=== PATIENT | male | born 1930 | race Caucasian/White ===

== ENCOUNTER 2016-05-23 19:17 | Emergency (ER) | payer OTHER ==
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
--- NOTE | 2016-05-23 22:53 | ED ORDER SUMMARY ---
..... Patient: OC SCHRADER OrderSheet [facility] VisitID: [id number] [place] [address] 85y, M Registration Date/Time: 05/23/2016 ORDER SHEET Weight: 68.9 kg (stated) Allergies: NKDA GENERAL ORDERS: Elbow 3 or 4V Right Urgent (19:56 05/23/2016 HBivens A.R.N.P.) (Ack 20:08 JQuivey R.N.) (20:15 TSalvadelena) Splint (UE) (Right) (posterior) (22:17 05/23/2016 HBivens A.R.N.P.) (Ack 22:37 JQuivey R.N.) (22:54 [employer] ER Cook Short Order) Sling - arm (22:17 05/23/2016 HBivens A.R.N.P.) (Ack 22:37 JQuivey R.N.) (22:54 [employer] ER Cook Short Order) MEDICATION ORDERS: Tdap IM 0.5 mL (per protocol) (19:59 05/23/2016 JQuivey R.N. per protocol) (20:06 JQuivey R.N.) Hydrocodone-APAP PO 5/325 mg (NOW, HIGH ALERT MEDICATION) (22:17 05/23/2016 HBivens A.R.N.P.) (Ack 22:30 JQuivey R.N.) (22:36 JQuivey R.N.) IV FLUIDS: ORDER SHEET NOTES: [Electronically signed by Jeffrey Rodriguez R.N. (23:05/23/2016)] [Electronically signed by Anila Palacios A.R.N.P. (23:13 05/23/2016)] [Electronically locked/signed by Jeffrey Rodriguez R.N. (23:05/23/2016)]
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
--- NOTE | 2016-05-23 22:53 | ED ORDER SUMMARY ---
..... Patient: OC SCHRADER OrderSheet [facility] VisitID: [id number] [place] [address] 85y, M Registration Date/Time: 05/23/2016 ORDER SHEET Weight: 68.9 kg (stated) Allergies: NKDA GENERAL ORDERS: Elbow 3 or 4V Right Urgent (19:56 05/23/2016 HBivens A.R.N.P.) (Ack 20:08 JQuivey R.N.) (20:15 TSalvadelena) Splint (UE) (Right) (posterior) (22:17 05/23/2016 HBivens A.R.N.P.) (Ack 22:37 JQuivey R.N.) (22:54 [employer] ER Robotics Specialist) Sling - arm (22:17 05/23/2016 HBivens A.R.N.P.) (Ack 22:37 JQuivey R.N.) (22:54 [employer] ER Robotics Specialist) MEDICATION ORDERS: Tdap IM 0.5 mL (per protocol) (19:59 05/23/2016 JQuivey R.N. per protocol) (20:06 JQuivey R.N.) Hydrocodone-APAP PO 5/325 mg (NOW, HIGH ALERT MEDICATION) (22:17 05/23/2016 HBivens A.R.N.P.) (Ack 22:30 JQuivey R.N.) (22:36 JQuivey R.N.) IV FLUIDS: ORDER SHEET NOTES: [Electronically signed by Jeffrey Rodriguez R.N. (23:05/23/2016)] [Electronically signed by Anila Palacios A.R.N.P. (23:13 05/23/2016)] [Electronically locked/signed by Jeffrey Rodriguez R.N. (23:05/23/2016)]
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
--- NOTE | 2016-05-23 23:14 | ED MED RECONCILIATION SUMMARY ---
Patient: OC SCHRADER Medication Reconciliation Report [facility] VisitID: [id number] [place] [address] 85y, M Registration Date/Time: 05/23/2016 Weight: 68.9 kg Height/Length: (not available) BMI: 24.2 ALLERGIES: NKDA The patient's Home Medications are listed below: THE FOLLOWING MEDICATIONS NEED TO BE RECONCILED: Asa 81mg daily Diltiazem HCl Oral 300 mg, daily Fluticasone Propionate (Inhal) Inhalation Loratadine Oral 10 mg, daily Niacin 1 tab daily Pravastatin Sodium Oral 80mg, at bedtime Tamsulosin HCl Oral 0.4 mg, daily The source(s) of the original Home Medication information: Not obtained. The following Medications were given to the patient in the Emergency Department: TDAP [IM] IM 0.5 mL, administered: 05/23/2016 8:04:00 PM Hydrocodone-APAP [PO] PO 1 tab, administered: 05/23/2016 10:33:00 PM The following Medications were prescribed to the patient: Zofran 4 mg: Take 1 orally every six hours as needed for nausea/vomiting. Dispense ten (10). No refills. Substitution is permissible. -- Anila Palacios, A.R.N.P. [place] 5 mg / 325 mg tablets: take 1 orally every 6 hours as needed for pain. Dispense thirty (30). No refill. -- Anila Palacios, A.R.N.P. Motrin 800 mg tablets: take 1 tablet orally every 8 hours as needed for pain. Dispense thirty (30). No refills. Substitution is permissible. -- Anila Palacios, A.R.N.P.
--- NOTE | 2016-05-23 23:14 | ED MAR SUMMARY ---
..... Medication Administration Record [facility] [address] [place] [address] Patient: OC SCHRADER Visit ID: [id number] 85y, M Weight: 68.9 kg Height/Length: 66.5 in BMI: 24.2 ALLERGIES: NKDA Given 20:04 05/23/2016 Jeffrey Rodriguez, R.N. Medication Administered: TDAP [IM], Dose: 0.5 mL IM. Medication Ordered: Tdap IM 0.5 mL (per protocol). Given 22:33 05/23/2016 Jeffrey Rodriguez, R.N. Medication Administered: HYDROCODONE-APAP [PO] (HYDROCODONE-ACETAMINOPHEN), Dose: 1 tab 5/325 mg Tablets PO. Medication Ordered: Hydrocodone-APAP PO 5/325 mg (NOW, HIGH ALERT MEDICATION).
--- NOTE | 2016-05-23 23:14 | ED MED RECONCILIATION SUMMARY ---
Patient: OC SCHRADER Medication Reconciliation Report [facility] VisitID: [id number] [place] [address] 85y, M Registration Date/Time: 05/23/2016 Weight: 68.9 kg Height/Length: (not available) BMI: 24.2 ALLERGIES: NKDA The patient's Home Medications are listed below: THE FOLLOWING MEDICATIONS NEED TO BE RECONCILED: Asa 81mg daily Diltiazem HCl Oral 300 mg, daily Fluticasone Propionate (Inhal) Inhalation Loratadine Oral 10 mg, daily Niacin 1 tab daily Pravastatin Sodium Oral 80mg, at bedtime Tamsulosin HCl Oral 0.4 mg, daily The source(s) of the original Home Medication information: Not obtained. The following Medications were given to the patient in the Emergency Department: TDAP [IM] IM 0.5 mL, administered: 05/23/2016 8:04:00 PM Hydrocodone-APAP [PO] PO 1 tab, administered: 05/23/2016 10:33:00 PM The following Medications were prescribed to the patient: Zofran 4 mg: Take 1 orally every six hours as needed for nausea/vomiting. Dispense ten (10). No refills. Substitution is permissible. -- Anila Palacios, A.R.N.P. [place] 5 mg / 325 mg tablets: take 1 orally every 6 hours as needed for pain. Dispense thirty (30). No refill. -- Anila Palacios, A.R.N.P. Motrin 800 mg tablets: take 1 tablet orally every 8 hours as needed for pain. Dispense thirty (30). No refills. Substitution is permissible. -- Anila Palacios, A.R.N.P.
--- NOTE | 2016-05-23 23:14 | ED MAR SUMMARY ---
..... Medication Administration Record [facility] [address] [place] [address] Patient: OC SCHRADER Visit ID: [id number] 85y, M Weight: 68.9 kg Height/Length: 66.5 in BMI: 24.2 ALLERGIES: NKDA Given 20:04 05/23/2016 Jeffrey Rodriguez, R.N. Medication Administered: TDAP [IM], Dose: 0.5 mL IM. Medication Ordered: Tdap IM 0.5 mL (per protocol). Given 22:33 05/23/2016 Jeffrey Rodriguez, R.N. Medication Administered: HYDROCODONE-APAP [PO] (HYDROCODONE-ACETAMINOPHEN), Dose: 1 tab 5/325 mg Tablets PO. Medication Ordered: Hydrocodone-APAP PO 5/325 mg (NOW, HIGH ALERT MEDICATION).
--- NOTE | 2016-05-23 23:14 | ED DISCHARGE INSTRUCTIONS ---
Patient: OC SCHRADER General Instructions [facility] VisitID: [id number] [place] [address] 85y, M Registration Date/Time: 05/23/2016 Fall on same level by tripping. Closed nondisplaced fracture of the proximal right radius (Elbow). No angulated fracture of the radius. INSTRUCTIONS Apply ice for 20 minutes four times a day for two days. Wear simple sling. Elevate affected areas above chest level for two days until better. Wear fiberglass splint until released. Warnings: GENERAL WARNINGS: Return or contact your physician immediately if your condition worsens or changes unexpectedly, if not improving as expected, or if other problems arise. worsens. Prescription Medications: Zofran 4 mg: Take 1 orally every six hours as needed for nausea/vomiting. Dispense ten (10). No refills. Substitution is permissible. Milbridge 5 mg / 325 mg tablets: take 1 orally every 6 hours as needed for pain. Dispense thirty (30). No refill. Motrin 800 mg tablets: take 1 tablet orally every 8 hours as needed for pain. Dispense thirty (30). No refills. Substitution is permissible. Follow-up: Follow up with an orthopedic surgeon as scheduled even if well. Summary of care provided to patient and family. Understanding of the discharge instructions verbalized by patient and family. ADDITIONAL INFORMATION Mechanical Fall You have had a fall today. It appears that the cause is mechanical. That means that you slipped, tripped or lost your balance. If your fall had been due to fainting or a seizure, further tests would be required. Home Care: Rest today and resume your normal activities when you are feeling back to normal. If you were injured during the fall, follow the advice from your doctor regarding care of your injury. You may use acetaminophen (Tylenol) or ibuprofen (Motrin, Advil) to control pain, unless another pain medicine was prescribed. [NOTE: If you have chronic liver or kidney disease or ever had a stomach ulcer or GI bleeding, talk with your doctor before using these medicines.] Fall Prevention: Was there anything that caused your fall that can be fixed, removed, or replaced? Make your home safe by keeping walkways clear of objects you may trip over. Use non-slip pads under rugs. Do not walk in poorly lit areas. Do not stand on chairs or wobbly ladders. Use caution when reaching overhead or looking upward. This position can cause a loss of balance. Be sure your shoes fit properly, have non-slip bottoms and are in good condition. Be cautious when going up and down curbs, and walking on uneven sidewalks. If your balance is poor, consider using a cane or walker. Stay as active as you can. Balance, flexibility, strength, and endurance all come from exercise. They all play a role in preventing falls. Follow Up with your doctor or as advised by our staff. Get Prompt Medical Attention if any of the following occur: Repeated mechanical falls, or unexplained falls Dizziness, fainting or seizure Severe headache Chest pain or shortness of breath Palpitations (very rapid or very slow or irregular heartbeat) Blood in vomit, stools (black or red color) Weakness of an arm or leg or one side of the face Difficulty with speech or vision Sling A sling is designed to support your arm in a position of rest. It is used for injuries of the hand, forearm, upper arm, and shoulder. A shoulder that is immobilized too long can become stiff and lose range of motion. Follow up with your doctor as advised and do not use the sling longer than directed. Home Use: Leave the sling in place as long as directed by your doctor. Unless told otherwise, you may remove it when bathing, dressing, and when you go to sleep. The sling is adjustable. If it becomes loose, adjust it so that your forearm is horizontal (level with the ground). Your hand should be level with the elbow. Splint Care, Fiberglass The following will help you care for your splint: It will take up totwo hours for your fiber glass splint to fully harden; therefore, do notapply any pressure on it during that time or else it may break. To prevent swelling under the splint, for thefirst 48 hours: If the splint is on yourarm, keep it in a sling or raised to shoulder level when sitting or standing; rest it on your chest or on a pillow at your side when lying down. If the splint is on yourfoot, keep it propped up above the level of your waist when sitting or lying. Avoid crutch walking as much as possible during this time. Keep the splint/cast dry at all times. Bathe with your splint/cast well out of the water, protected with a large plastic bag, rubber-banded at the top end. If a fiberglass cast or splint gets wet, you can dry it with a hair-dryer. Follow-up care Follow up with your doctor or this facility as advised. When to seek medical care Get prompt medical attention if any of the following occur: Bad odor from the splint or wound-fluid stains the splint The splint cracks or remains wet over 24 hours Increasing tightness or pressure under the splint Fingers or toes become swollen, cold, blue, numb or tingly Increased pain under the splint Ondansetron Oral disintegrating tablet What is this medicine? ONDANSETRON (on MARTINEZ se willy) is used to treat nausea and vomiting caused by chemotherapy. It is also used to prevent or treat nausea and vomiting after surgery. How should I use this medicine? These tablets are made to dissolve in the mouth. Do not try to push the tablet through the foil backing. With dry hands, peel away the foil backing and gently remove the tablet. Place the tablet in the mouth and allow it to dissolve, then swallow. While you may take these tablets with water, it is not necessary to do so. Talk to your grievance manager regarding the use of this medicine in children. Special care may be needed. What side effects may I notice from receiving this medicine? Side effects that you should report to your doctor or health wild animal caretaker as soon as possible: allergic reactions like skin rash, itching or hives, swelling of the face, lips, or tongue breathing problems dizziness fast or irregular heartbeat feeling faint or lightheaded, falls fever and chills swelling of the hands and feet tightness in the chest Side effects that usually do not require medical attention (report to your doctor or health wild animal caretaker if they continue or are bothersome): constipation or diarrhea headache What may interact with this medicine? Do not take this medicine with any of the following medications: -apomorphine -cisapride -dofetilide -dronedarone -pimozide -thioridazine -ziprasidone This medicine may also interact with the following medications: -carbamazepine -phenytoin -rifampicin -tramadol -other medicines that prolong the QT interval (cause an abnormal heart rhythm) What if I miss a dose? If you miss a dose, take it as soon as you can. If it is almost time for your next dose, take only that dose. Do not take double or extra doses. Where should I keep my medicine? Keep out of the reach of children. Store between 2 and 30 degrees C (36 and 86 degrees F). Throw away any unused medicine after the expiration date. What should I tell my health care provider before I take this medicine? They need to know if you have any of these conditions: heart disease history of irregular heartbeat liver disease low levels of magnesium or potassium in the blood an unusual or allergic reaction to ondansetron, granisetron, other medicines, foods, dyes, or preservatives or trying to get breast-feeding What should I watch for while using this medicine? Check with your doctor or health wild animal caretaker as soon as you can if you have any sign of an allergic reaction. Hydrocodone Bitartrate, Acetaminophen Oral tablet What is this medicine? ACETAMINOPHEN; HYDROCODONE (a set a GELA mauricio fen; miriam droe KOE done) is a pain reliever. It is used to treat mild to moderate pain. How should I use this medicine? Take this medicine by mouth. Swallow it with a full glass of water. Follow the directions on the prescription label. If the medicine upsets your stomach, take the medicine with food or milk. Do not take more than you are told to take. Talk to your grievance manager regarding the use of this medicine in children. This medicine is not approved for use in children. What side effects may I notice from receiving this medicine? Side effects that you should report to your doctor or health wild animal caretaker as soon as possible: allergic reactions like skin rash, itching or hives, swelling of the face, lips, or tongue breathing problems confusion feeling faint or lightheaded, falls stomach pain yellowing of the eyes or skin Side effects that usually do not require medical attention (report to your doctor or health wild animal caretaker if they continue or are bothersome): nausea, vomiting stomach upset What may interact with this medicine? alcohol antihistamines isoniazid medicines for depression, anxiety, or psychotic disturbances medicines for sleep muscle relaxants naltrexone narcotic medicines (opiates) for pain phenobarbital ritonavir tramadol What if I miss a dose? If you miss a dose, take it as soon as you can. If it is almost time for your next dose, take only that dose. Do not take double or extra doses. Where should I keep my medicine? Keep out of the reach of children. This medicine can be abused. Keep your medicine in a safe place to protect it from theft. Do not share this medicine with anyone. Selling or giving away this medicine is dangerous and against the law. Store at room temperature between 15 and 30 degrees C (59 and 86 degrees F). Protect from light. Keep container tightly closed. Throw away any unused medicine after the expiration date. Discard unused medicine and used packaging carefully. Pets and children can be harmed if they find used or lost packages. What should I tell my health care provider before I take this medicine? They need to know if you have any of these conditions: brain tumor Crohn's disease, inflammatory bowel disease, or ulcerative colitis drink more than 3 alcohol-containing drinks per day drug abuse or addiction head injury heart or circulation problems kidney disease or problems going to the bathroom liver disease lung disease, asthma, or breathing problems an unusual or allergic reaction to acetaminophen, hydrocodone, other opioid analgesics, other medicines, foods, dyes, or preservatives or trying to get breast-feeding What should I watch for while using this medicine? Tell your doctor or health wild animal caretaker if your pain does not go away, if it gets worse, or if you have new or a different type of pain. You may develop tolerance to the medicine. Tolerance means that you will need a higher dose of the medicine for pain relief. Tolerance is normal and is expected if you take the medicine for a long time. Do not suddenly stop taking your medicine because you may develop a severe reaction. Your body becomes used to the medicine. This does NOT mean you are addicted. Addiction is a behavior related to getting and using a drug for a non-medical reason. If you have pain, you have a medical reason to take pain medicine. Your doctor will tell you how much medicine to take. If your doctor wants you to stop the medicine, the dose will be slowly lowered over time to avoid any side effects. You may get drowsy or dizzy when you first start taking the medicine or change doses. Do not drive, use machinery, or do anything that may be dangerous until you know how the medicine affects you. Stand or sit up slowly. There are different types of narcotic medicines (opiates) for pain. If you take more than one type at the same time, you may have more side effects. Give your health care provider a list of all medicines you use. Your doctor will tell you how much medicine to take. Do not take more medicine than directed. Call emergency for help if you have problems breathing. The medicine will cause constipation. Try to have a bowel movement at least every 2 to 3 days. If you do not have a bowel movement for 3 days, call your doctor or health wild animal caretaker. Too much acetaminophen can be very dangerous. Do not take Tylenol (acetaminophen) or medicines that contain acetaminophen with this medicine. Many non-prescription medicines contain acetaminophen. Always read the labels carefully. Ibuprofen Oral tablet What is this medicine? IBUPROFEN (eye BYOO proe fen) is a non-steroidal anti-inflammatory drug (NSAID). It is used for dental pain, fever, headaches or migraines, osteoarthritis, rheumatoid arthritis, or painful monthly periods. It can also relieve minor aches and pains caused by a cold, flu, or sore throat. How should I use this medicine? Take this medicine by mouth with a glass of water. Follow the directions on the prescription label. Take this medicine with food if your stomach gets upset. Try to not lie down for at least 10 minutes after you take the medicine. Take your medicine at regular intervals. Do not take your medicine more often than directed. A special MedGuide will be given to you by the pharmacist with each prescription and refill. Be sure to read this information carefully each time. Talk to your grievance manager regarding the use of this medicine in children. Special care may be needed. What side effects may I notice from receiving this medicine? Side effects that you should report to your doctor or health wild animal caretaker as soon as possible: allergic reactions like skin rash, itching or hives, swelling of the face, lips, or tongue black or bloody stools, blood in the urine or in vomit breathing problems changes in vision chest pain general ill feeling or flu-like symptoms nausea or vomiting redness, blistering, peeling or loosening of the skin, including inside the mouth slurred speech or weakness on one side of the body stomach pain unexplained weight gain or swelling unusually weak or tired yellowing of eyes or skin Side effects that usually do not require medical attention (report to your doctor or health wild animal caretaker if they continue or are bothersome): constipation or diarrhea dizziness gas or heartburn stomach upset What may interact with this medicine? Do not take this medicine with any of the following medications: cidofovir ketorolac methotrexate pemetrexed This medicine may also interact with the following medications: alcohol aspirin diuretics lithium other drugs for inflammation like prednisone warfarin What if I miss a dose? If you miss a dose, take it as soon as you can. If it is almost time for your next dose, take only that dose. Do not take double or extra doses. Where should I keep my medicine? Keep out of the reach of children. Store at room temperature between 15 and 30 degrees C (59 and 86 degrees F). Keep container tightly closed. Throw away any unused medicine after the expiration date. What should I tell my health care provider before I take this medicine? They need to know if you have any of these conditions: asthma cigarette smoker drink more than 3 alcohol containing drinks a day heart disease or circulation problems such as heart failure or leg edema (fluid retention) high blood pressure kidney disease liver disease stomach bleeding or ulcers an unusual or allergic reaction to ibuprofen, aspirin, other NSAIDS, other medicines, foods, dyes, or preservatives or trying to get breast-feeding What should I watch for while using this medicine? Tell your doctor or healthcare professional if your symptoms do not start to get better or if they get worse. This medicine does not prevent heart attack or stroke. In fact, this medicine may increase the chance of a heart attack or stroke. The chance may increase with longer use of this medicine and in people who have heart disease. If you take aspirin to prevent heart attack or stroke, talk with your doctor or health wild animal caretaker. Do not take other medicines that contain aspirin, ibuprofen, or naproxen with this medicine. Side effects such as stomach upset, nausea, or ulcers may be more likely to occur. Many medicines available without a prescription should not be taken with this medicine. This medicine can cause ulcers and bleeding in the stomach and intestines at any time during treatment. Ulcers and bleeding can happen without warning symptoms and can cause . To reduce your risk, do not smoke cigarettes or drink alcohol while you are taking this medicine. You may get drowsy or dizzy. Do not drive, use machinery, or do anything that needs mental alertness until you know how this medicine affects you. Do not stand or sit up quickly, especially if you are an older patient. This reduces the risk of dizzy or fainting spells. This medicine can cause you to bleed more easily. Try to avoid damage to your teeth and gums when you brush or floss your teeth. You have been given the following additional information: Fall, Mechanical Sling Splint Care, Fiberglass Ondansetron Oral disintegrating tablet Hydrocodone Bitartrate, Acetaminophen Oral tablet Ibuprofen Oral tablet (Electronically signed by Anila Palacios A.R.N.P. 05/23/2016 23:13)
== END 2016-05-23 23:00 | disposition home or self-care (01) ==
LOC: ED SRH 19:17
DX: S52.101A Unspecified fracture of upper end of right radius, initial encounter for closed fracture (principal); W01.0XXA Fall on same level from slipping, tripping and stumbling without subsequent striking against object, initial encounter; Y92.39 Other specified sports and athletic area as the place of occurrence of the external cause; Y99.9 Unspecified external cause status; I10 Essential (primary) hypertension; Z79.899 Other long term (current) drug therapy; Z79.82 Long term (current) use of aspirin; Z23 Encounter for immunization